=== PATIENT | male | born 1970 | race Caucasian/White ===

== ENCOUNTER 2022-10-16 10:09 | Day surgery (SDC) | payer BC, SELFPAY ==
--- NOTE | 2022-10-15 12:32 | P.CONAN_ITS ---
Documented by User: Rosa Mclain NP 10/15/22 12:33 HPI - Anesthesia Eval Consult details Narrative: 52yo M for Colonoscopy [facility] Past Medical History Medical History (Updated 10/15/22 @ 12:32 by Rosa Mclain NP) Asthma COPD (chronic obstructive pulmonary disease) Multiple sclerosis Social History Social History Patient Tobacco Use Status: Current everyday Tobacco user Smoked in Last 30 Days: Yes Patient Interested in Nicotine Replacement: No Substance Use Frequency: Occasionally Are you DNR?: No Advance Directives: No Advance Directives Information Provided: Yes Nutrition Risks: No Nutritional Risk Meds Allergies Allergy/AdvReac Type Severity Reaction Status Date / Time No Known Allergies Allergy Unverified 02/11/20 15:21 Home Medications Medication Instructions Recorded Confirmed Last Taken Type Rituxan 10/15/22 Unknown History baclofen 10/15/22 Unknown History gabapentin 10/15/22 Unknown History multivitamin 10/15/22 Unknown History Exam Exam Date and Time: October 15, 2022 1232 Assessment and Plan Assessment Anesthesia Assessment: Chart Reviewed Documented by User: Hafsa Dan MD 10/17/22 12:54 [facility] Past Medical History Medical History (Updated 10/15/22 @ 12:32 by Rosa Mclain NP) Asthma COPD (chronic obstructive pulmonary disease) Multiple sclerosis Social History Social History Patient Tobacco Use Status: Current everyday Tobacco user Smoked in Last 30 Days: Yes Patient Interested in Nicotine Replacement: No Substance Use Frequency: Occasionally Are you DNR?: No Advance Directives: No Advance Directives Information Provided: Yes Nutrition Risks: No Nutritional Risk Meds Allergies Allergy/AdvReac Type Severity Reaction Status Date / Time No Known Allergies Allergy Unverified 02/11/20 15:21 Home Medications Medication Instructions Recorded Confirmed Last Taken Type Rituxan 10/15/22 Unknown History baclofen 10/15/22 Unknown History gabapentin 10/15/22 Unknown History multivitamin 10/15/22 Unknown History Exam Airway Mallampati Class: II TM Dist: >3cm Neck ROM: Full Documented by User: Ignacio Lyn MD 10/16/22 11:30 PMF Past Medical History Medical History (Updated 10/15/22 @ 12:32 by Rosa Mclain NP) Asthma COPD (chronic obstructive pulmonary disease) Multiple sclerosis Family History Family history of problems with anesthesia: No Surgical History History of Problems with Anesthesia: No Social History Social History Patient Tobacco Use Status: Current everyday Tobacco user Smoked in Last 30 Days: Yes Patient Interested in Nicotine Replacement: No Substance Use Frequency: Occasionally Are you DNR?: No Advance Directives: No Advance Directives Information Provided: Yes Nutrition Risks: No Nutritional Risk Meds Allergies Allergy/AdvReac Type Severity Reaction Status Date / Time No Known Allergies Allergy Unverified 02/11/20 15:21 Home Medications Medication Instructions Recorded Confirmed Last Taken Type Rituxan 10/15/22 Unknown History baclofen 10/15/22 Unknown History gabapentin 10/15/22 Unknown History multivitamin 10/15/22 Unknown History Exam Airway Heart: rrr Lungs: cta Assessment and Plan Assessment Anesthesia Assessment: Anesthesia Plan Discussed Final Anesthetic Review Family History of Problems with Anesthesia: No History of Problems with Anesthesia: No NPO: Yes ASA Class: III Final Preanesthetic Review: No Changes in Pt Med Stat, Meds/Allgs Chart Reviewed, Consent Obtained/Reviewed and Anes Risks/Benef Reviewed Patient Risk: Intermediate Procedure Risk: Low Anesthetic Plan Anesthetic Plan: MAC: Disposition: Standard PACU
[2022-10-16 10:54] VITALS: BMI 21.7
[2022-10-16] MEDS: Lactated Ringers 1,000 ML 100 ML IVCONT (10:59)
[2022-10-16 11:27] VITALS: BP 132/82; PULSE 77; RESP 18; TEMP 36.4; O2SAT 96
--- NOTE | 2022-10-16 11:56 | MHC.SHP ---
Pre-Procedural Eval Section A Date of Service: 10/16/22 The patient is an INPATIENT: No Changes since office visit: No Cold of Flu in the past 2 weeks, No New Medical Problems, No Changes in Medication and No Patient answered all questions The History & Physical has been completed within 30 days and I have reviewed it.: Yes Section B Chief Complaint: Encounter for screening for malignant neoplasm of Allergies: Allergies Allergy/AdvReac Type Severity Reaction Status Date / Time No Known Allergies Allergy Unverified 02/11/20 15:21 Plan I have reviewed the history and physical and performed a pertinent physical examination on my patient. No changes have occurred unless specified. Time Spent With Patient Time: Total time managing care of this patient today ____ minutes.
--- NOTE | 2022-10-16 12:50 | PM.OP ---
Brief Operative Note Date of Service: 10/16/22 Pre-op diagnosis: screening Post-op diagnosis: same Procedure: colonoscopy Surgeon: Naldo Pineda Anesthesia: MAC Was an [employer] used for this Procedure?: No Estimated blood loss (mL): 2 Pathology: other Condition: stable Disposition: PACU
[2022-10-16 12:56] VITALS: BP 122/77; PULSE 74; RESP 16; TEMP 36.4; O2SAT 96
[2022-10-16 13:11] VITALS: BP 126/86; PULSE 65; RESP 17; O2SAT 96
[2022-10-16 13:26] VITALS: BP 135/90; PULSE 61; RESP 17; TEMP 36.3; O2SAT 96
--- NOTE | 2022-10-16 14:10 | OP_ITS ---
DATE OF SERVICE: 10/16/2022 SURGEON: Naldo Pineda MD INDICATIONS: Colon cancer screening. PREOPERATIVE DIAGNOSIS: POSTOPERATIVE DIAGNOSIS: PROCEDURE PERFORMED: Colonoscopy to the cecum with snare polypectomy. ESTIMATED BLOOD LOSS: COMPLICATIONS: ANESTHESIA: Monitored anesthesia care. ASSISTANTS: SPECIMENS: DESCRIPTION OF PROCEDURE: A history and physical was performed. The risks and benefits of the procedure were explained to the patient. Informed consent was obtained. The patient was placed in the left lateral decubitus position. A digital rectal exam was performed and was found to be normal. The Olympus pediatric video colonoscope was introduced into the rectum and advanced to the cecum. The cecum was identified by transillumination, palpation, and identification of ileocecal valve. Examination was performed. The scope was removed. He tolerated the procedure well and was returned to the recovery area in stable condition. FINDINGS: The terminal ileum was not examined. The visualized colonic mucosa was within normal limits without evidence of masses or ulcers. There was some liquid stool left, which was washed and suctioned. This limited sensitivity examination for detection of small polyps. A single polyp measuring approximately 5 to 6 mm was removed from the rectum on retroflexed view with a cold snare and recovered via suction. There were small internal hemorrhoids also seen. IMPRESSION: Colon polyp. RECOMMENDATION: Follow up the biopsy results. MD VIVIAN Calderón/WILMER / [id number]
== END 2022-10-16 15:03 | disposition home or self-care (01) ==
PROVIDERS: Visit Provider Internal Medicine Gastroenterology
PROC: 0DJD8ZZ Inspection of Lower Intestinal Tract, Via Natural or Artificial Opening Endoscopic (ICD-10-PCS; CPT 45378; principal; 2022-10-16 11:40)
DX: Z12.11 Encounter for screening for malignant neoplasm of colon (principal); K62.1 Rectal polyp; K64.8 Other hemorrhoids; J44.9 Chronic obstructive pulmonary disease, unspecified; G35 Multiple sclerosis; Z79.899 Other long term (current) drug therapy; Z87.891 Personal history of nicotine dependence
CPT/HCPCS: 45385; 88305